=== PATIENT | female | born 1990 | race Two or more races ===

== ENCOUNTER 2022-04-29 00:57 | Emergency (ER) | payer BC ==
[~2022-04-29] VITALS: Ht 167.6 cm; Wt 59.0 kg
[2022-04-29] MEDS ORDERED: PROAIR HFA8.5 GM (01:30)
== END 2022-04-29 03:33 | disposition left against medical advice (07) ==
LOC: ER 00:57
DX: J06.9 Acute upper respiratory infection, unspecified (principal); R05.9 Cough, unspecified; R06.02 Shortness of breath; Z20.822 Contact with and (suspected) exposure to COVID-19